=== PATIENT | male | born 1990 | race Hispanic/Latino ===

== ENCOUNTER 2019-01-22 20:51 | Emergency (ER) | payer OTHER ==
[~2019-01-22] VITALS: Ht 170.2 cm; Wt 79.5 kg
[2019-01-22] MEDS ORDERED: KETOROLAC 60 MG/2 ML VIAL (J1885) IM ONE (22:15)
--- NOTE | 2019-01-22 23:17 | REPVR ---
EXAM: CT Lumbar Spine Without Contrast EXAM DATE/TIME: 01/22/2019 10:47 PM CLINICAL HISTORY: 28 years old, male; Low back pain; Additional info: Pain, injury TECHNIQUE: Imaging protocol: Computed tomography images of the lumbar spine without contrast. Radiation optimization: All CT scans at this facility use at least one of these dose optimization techniques: automated exposure control; mA and/or kV adjustment per patient size (includes targeted exams where dose is matched to clinical indication); or iterative reconstruction. COMPARISON: No relevant prior studies available. FINDINGS: The lumbar vertebra appear in alignment. There is no evidence of fracture. L5-S1: There is mild broad-based bulge of the disc. Conjoined left L5 nerve root. L4-L5: There is a small broad-based disc protrusion causing mild impression on the thecal sac. There is severe left L4 neural foramina narrowing secondary to disc osteophyte complex at the caudal aspect of the left L4 neural foramina. L3-L4: There is mild broad-based disc bulge causing mild impression on the thecal sac. L2-L3: Mild broad-based disc bulge causing mild impression on the thecal sac. L1-L2: Mild broad-based disc bulge causing mild impression on the thecal sac. T12-L1: Mild broad-based bulge of the disc causing mild impression on the thecal sac. IMPRESSION: The L4-L5 level demonstrates a small broad-based disc protrusion. Severe left L4 neural foramina narrowing secondary to disc osteophyte complex at the caudal aspect of the left L4 neural foramina. Electronically signed by: Corey Sotelo On 01/22/2019 23:17:19 PM
[2019-01-22] MEDS ORDERED: KETO10TAB PO (23:32)
[2019-01-22] MEDS ORDERED: CYCL10TA PO (23:32)
[2019-01-22] MEDS ORDERED: CYCLOBENZAPRINE 10 MG TAB PO ONE (23:45)
[2019-01-23 00:12] VITALS: BP 122/74
--- NOTE | 2019-01-23 09:37 | ED PDOC ---
Post-Departure Follow-Up ft [facility] faxed formal report of ct ls spine for fu Davin Almaraz MD Jan 23, 2019 09:37
== END 2019-01-23 00:15 | disposition home or self-care (01) ==
LOC: M ED 20:51
DX: M54.5 Low back pain (principal); Z77.098 Contact with and (suspected) exposure to other hazardous, chiefly nonmedicinal, chemicals
CPT/HCPCS: 72131; 96372; 99283; J1885

== ENCOUNTER 2020-05-05 18:50 | Emergency (ER) | payer OTHER ==
[~2020-05-05] VITALS: Ht 172.7 cm; Wt 83.1 kg
[~2020-05-05 18:50] MED LIST: CYCL-707 PO; KETO10TAB PO
[2020-05-05] MEDS ORDERED: diphenhydrAMINE 50MG/ML VIAL (J1200) IV STA (20:21)
[2020-05-05] MEDS ORDERED: METOCLOPRAMIDE INJ 10MG/2ML VIAL (J2765 PER 1) IV ONE (20:30)
[2020-05-05] MEDS ORDERED: NS 1,000 ML IV ONE (20:30)
[2020-05-05] MEDS ORDERED: KETOROLAC 30 MG/ML 1ML VIAL IV ONE (20:30)
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
[2020-05-05 21:38] VITALS: BP 95/50
[2020-05-05] MEDS ORDERED: MORPHINE 4 MG/ML 1ML VIAL/SYRINGE (J2270) IV ONE (21:45)
== END 2020-05-05 21:57 | disposition home or self-care (01) ==
LOC: M ED 18:50
DX: S01.01XA Laceration without foreign body of scalp, initial encounter (principal); S06.0X0A Concussion without loss of consciousness, initial encounter; R51.9 Headache, unspecified; W22.8XXA Striking against or struck by other objects, initial encounter; Y92.89 Other specified places as the place of occurrence of the external cause; Y93.9 Activity, unspecified; Y99.1 Military activity
CPT/HCPCS: 70450; 96361; 96374; 96375; 99284; J1200; J1885; J2270; J2765